=== PATIENT | female | born 1995 | race Caucasian/White ===

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

== ENCOUNTER 2017-04-11 15:54 | Emergency (ER) | payer OTHER ==
[~2017-04-11] VITALS: Ht 165.1 cm; Wt 131.6 kg
[2017-04-11 16:04] VITALS: BP 139/76
--- NOTE | 2017-04-11 16:40 | REP ---
Right wrist four views: Comparison is 12/09/2016. The known nondisplaced fracture of the scaphoid ossicle is unchanged. There is no acute fracture or dislocation. Demineralization is normal. No calcifications or foreign bodies. Impression: No acute fracture. Known scaphoid fracture. Signed by Brenden Boo MD 04/11/2017 04:31 P
== END 2017-04-11 17:38 | disposition home or self-care (01) ==
LOC: M ED 15:54
DX: S60.211A Contusion of right wrist, initial encounter (principal); W22.8XXA Striking against or struck by other objects, initial encounter; Y92.018 Other place in single-family (private) house as the place of occurrence of the external cause; Y93.89 Activity, other specified; Y99.8 Other external cause status; F99 Mental disorder, not otherwise specified; Z88.0 Allergy status to penicillin

== ENCOUNTER → 2017-09-26 | Outpatient (REF) | payer OTHER ==
[2017-09-26 15:17] LABS: BASO # 0.1 10^3/uL (0.0-0.2); BASO % 0.8 % (0.0-1.0); EOS # 0.7 10^3/uL (0.0-0.50); EOS % 6.8 % (0.0-3.0); IMMATURE GRANULOCYTE % 0.3 % (0-0); LYMPH # 2.2 10^3/uL (1.5-6.5); MEAN CORPUSCULAR HEMOGLOBIN 29.4 pg (27.0-33.0); MEAN CORPUSCULAR HGB CONC 33.8 g/dl (32.0-36.5); MEAN CORPUSCULAR VOLUME 87.1 fl (80.0-96.0); MONO # 0.6 10^3/uL (0.0-0.8); MONO % 5.8 % (0.0-5.0); NEUTROPHILS # 6.1 10^3/uL (1.8-7.7); NEUTROPHILS % 63.3 % (36.0-66.0); PLATELET COUNT, AUTOMATED 243 10^3/uL (150-450); RED CELL DISTRIBUTION WIDTH 13.3 % (11.5-14.5); WHITE BLOOD COUNT 9.6 10^3/uL (4.0-10.0)
[2017-09-26 15:39] LABS: ALBUMIN/GLOBULIN RATIO 1.21 (1.00-1.93); ALKALINE PHOSPHATASE 80 U/L (45-117); ALT/SGPT 40 U/L (12-78); ANION GAP 9 MEQ/L (8-16); AST/SGOT 23 U/L (7-37); BILIRUBIN,TOTAL 0.3 MG/DL (0.2-1.0); BLOOD UREA NITROGEN 14 MG/DL (7-18); CALCIUM LEVEL 8.7 MG/DL (8.5-10.1); CARBON DIOXIDE LEVEL 25 MEQ/L (21-32); CHLORIDE LEVEL 107 MEQ/L (98-107); CHOLESTEROL LEVEL 156 MG/DL (<200); CREATININE FOR GFR 0.64 MG/DL (0.55-1.02); FREE T4 0.96 NG/DL (0.78-1.33); GLUCOSE, FASTING 86 MG/DL (70-105); POTASSIUM SERUM 4.6 MEQ/L (3.5-5.1); SODIUM LEVEL 141 MEQ/L (136-145); TOTAL PROTEIN 7.3 GM/DL (6.4-8.2); TRIGLYCERIDES LEVEL 144 MG/DL (<150)
== END ==
LOC: M SFHCSACK 09:14
PROVIDERS: ATTEND Physician Assistant
DX: F41.9 Anxiety disorder, unspecified (principal); Z13.29 Encounter for screening for other suspected endocrine disorder; Z13.220 Encounter for screening for lipoid disorders; Z13.21 Encounter for screening for nutritional disorder

== ENCOUNTER 2017-10-25 23:57 | Emergency (ER) | payer OTHER | END 2017-10-26 01:44 | disposition left against medical advice (07) | LOC: M ED 23:57 | DX: Z53.29 Procedure and treatment not carried out because of patient's decision for other reasons (principal) ==

== ENCOUNTER 2017-12-30 12:46 | Emergency (ER) | payer OTHER ==
[2017-12-30] MEDS: ONDANSETRON 4 MG ORAL DISINTEGRATING TAB (S0181) PO (13:30)
[2017-12-30] MEDS: NS 1,000 ML IV (14:30)
[2017-12-30 14:46] LABS: BASO % 0.4 % (0.0-1.0); EOS # 0.6 10^3/uL (0.0-0.50); EOS % 7.1 % (0.0-3.0); HEMATOCRIT 41.7 % (36.0-47.0); HEMOGLOBIN 14.2 g/dl (12.0-16.0); IMMATURE GRANULOCYTE % 0.8 % (0-3.0); LYMPH # 1.9 10^3/uL (1.5-6.5); MEAN CORPUSCULAR HEMOGLOBIN 30.2 pg (27.0-33.0); MEAN CORPUSCULAR HGB CONC 34.1 g/dl (32.0-36.5); MEAN CORPUSCULAR VOLUME 88.7 fl (80.0-96.0); MONO # 0.6 10^3/uL (0.0-0.8); MONO % 7.7 % (0.0-5.0); NEUTROPHILS # 4.7 10^3/uL (1.8-7.7); PLATELET COUNT, AUTOMATED 234 10^3/uL (150-450); RED CELL DISTRIBUTION WIDTH 13.7 % (11.5-14.5); WHITE BLOOD COUNT 7.8 10^3/uL (4.0-10.0)
[2017-12-30 15:10] LABS: LIPASE 122 U/L (73-393)
[2017-12-30 15:16] LABS: ALBUMIN 3.6 GM/DL (3.2-5.2); ALBUMIN/GLOBULIN RATIO 1.09 (1.00-1.93); ALKALINE PHOSPHATASE 74 U/L (45-117); ALT/SGPT 23 U/L (12-78); ANION GAP 6 MEQ/L (8-16); AST/SGOT 18 U/L (7-37); BILIRUBIN,DIRECT 0.2 MG/DL (0.0-0.2); BILIRUBIN,TOTAL 0.4 MG/DL (0.2-1.0); BLOOD UREA NITROGEN 11 MG/DL (7-18); CALCIUM LEVEL 8.1 MG/DL (8.5-10.1); CARBON DIOXIDE LEVEL 27 MEQ/L (21-32); CHLORIDE LEVEL 107 MEQ/L (98-107); GLUCOSE, FASTING 88 MG/DL (70-100); POTASSIUM SERUM 4.2 MEQ/L (3.5-5.1); SODIUM LEVEL 140 MEQ/L (136-145); TOTAL PROTEIN 6.9 GM/DL (6.4-8.2)
== END 2017-12-30 16:21 | disposition home or self-care (01) ==
LOC: M ED 12:46
DX: A08.4 Viral intestinal infection, unspecified (principal); F41.9 Anxiety disorder, unspecified; F32.9 Major depressive disorder, single episode, unspecified; F17.200 Nicotine dependence, unspecified, uncomplicated; Z88.0 Allergy status to penicillin; Z79.899 Other long term (current) drug therapy
CPT/HCPCS: 76705

== ENCOUNTER 2018-02-01 10:04 | Emergency (ER) | payer OTHER | END 2018-02-01 11:24 | disposition home or self-care (01) | LOC: M ED 10:04 | DX: S29.011A Strain of muscle and tendon of front wall of thorax, initial encounter (principal); X50.9XXA Other and unspecified overexertion or strenuous movements or postures, initial encounter; Y92.89 Other specified places as the place of occurrence of the external cause; F33.9 Major depressive disorder, recurrent, unspecified; F41.9 Anxiety disorder, unspecified; F17.200 Nicotine dependence, unspecified, uncomplicated; Z79.899 Other long term (current) drug therapy; Z88.0 Allergy status to penicillin | CPT/HCPCS: 71101 ==

== ENCOUNTER 2018-02-01 15:31 | Emergency (ER) | payer OTHER ==
[2018-02-01] MEDS: PERCOCET 5MG/325MG TAB PO (17:37)
== END 2018-02-01 17:45 | disposition home or self-care (01) ==
LOC: M ED 15:31
DX: S22.31XA Fracture of one rib, right side, initial encounter for closed fracture (principal); X58.XXXA Exposure to other specified factors, initial encounter; Y92.89 Other specified places as the place of occurrence of the external cause; Y93.89 Activity, other specified; Y99.9 Unspecified external cause status; F17.200 Nicotine dependence, unspecified, uncomplicated; Z79.899 Other long term (current) drug therapy; Z88.0 Allergy status to penicillin
CPT/HCPCS: 71101

== ENCOUNTER 2018-02-16 04:38 | Emergency (ER) | payer OTHER ==
[2018-02-16] MEDS: NORCO 5/325MG TABLET (BULK FOR ED) PO (06:14)
== END 2018-02-16 06:19 | disposition home or self-care (01) ==
LOC: M ED 04:38
DX: S22.31XA Fracture of one rib, right side, initial encounter for closed fracture (principal); X50.9XXA Other and unspecified overexertion or strenuous movements or postures, initial encounter; Y92.89 Other specified places as the place of occurrence of the external cause; F17.210 Nicotine dependence, cigarettes, uncomplicated; Z88.0 Allergy status to penicillin; Z79.899 Other long term (current) drug therapy
CPT/HCPCS: 71250

== ENCOUNTER 2018-02-24 13:21 | Emergency (ER) | payer OTHER | END 2018-02-24 14:30 | disposition home or self-care (01) | LOC: M ED 13:21 | DX: S22.31XA Fracture of one rib, right side, initial encounter for closed fracture (principal); W19.XXXA Unspecified fall, initial encounter; Y92.89 Other specified places as the place of occurrence of the external cause; F33.9 Major depressive disorder, recurrent, unspecified; F41.9 Anxiety disorder, unspecified; F17.210 Nicotine dependence, cigarettes, uncomplicated; Z88.0 Allergy status to penicillin; Z79.899 Other long term (current) drug therapy | CPT/HCPCS: 99283 ==

== ENCOUNTER → 2018-05-29 | Outpatient (REF) | payer OTHER ==
[2018-05-29 15:21] LABS: BASO # 0.1 10^3/uL (0.0-0.2); BASO % 0.6 % (0.0-1.0); EOS # 0.9 10^3/uL (0.0-0.50); EOS % 7.1 % (0.0-3.0); HEMATOCRIT 41.2 % (36.0-47.0); HEMOGLOBIN 13.8 g/dl (12.0-15.5); IMMATURE GRANULOCYTE % 0.6 % (0-3.0); LYMPH # 3.3 10^3/uL (1.5-6.5); LYMPH % 26.3 % (24.0-44.0); MEAN CORPUSCULAR HEMOGLOBIN 28.3 pg (27.0-33.0); MEAN CORPUSCULAR HGB CONC 33.5 g/dl (32.0-36.5); MEAN CORPUSCULAR VOLUME 84.6 fl (80.0-96.0); MONO # 0.8 10^3/uL (0.0-0.8); MONO % 6.3 % (0.0-5.0); NEUTROPHILS # 7.3 10^3/uL (1.8-7.7); NEUTROPHILS % 59.1 % (36.0-66.0); PLATELET COUNT, AUTOMATED 316 10^3/uL (150-450); RED BLOOD COUNT 4.87 10^6/uL (4.00-5.40); RED CELL DISTRIBUTION WIDTH 13.7 % (11.5-14.5); WHITE BLOOD COUNT 12.4 10^3/uL (4.0-10.0)
[2018-05-29 15:47] LABS: ALBUMIN 3.6 GM/DL (3.2-5.2); ALBUMIN/GLOBULIN RATIO 1.06 (1.00-1.93); ALKALINE PHOSPHATASE 89 U/L (45-117); ALT/SGPT 22 U/L (12-78); ANION GAP 12 MEQ/L (8-16); AST/SGOT 12 U/L (7-37); BILIRUBIN,TOTAL 0.2 MG/DL (0.2-1.0); BLOOD UREA NITROGEN 12 MG/DL (7-18); CALCIUM LEVEL 8.5 MG/DL (8.5-10.1); CARBON DIOXIDE LEVEL 23 MEQ/L (21-32); CHLORIDE LEVEL 108 MEQ/L (98-107); CREATININE FOR GFR 0.58 MG/DL (0.55-1.30); GLUCOSE, FASTING 84 MG/DL (70-100); SODIUM LEVEL 143 MEQ/L (136-145)
[2018-05-29 15:49] LABS: POTASSIUM SERUM 5.4 MEQ/L (3.5-5.1)
[2018-05-29 16:07] LABS: TOTAL 25(OH) VITAMIN D 19.3 NG/ML (30.0-100.0)
== END ==
LOC: M SFHCSACK 08:12
DX: E55.9 Vitamin D deficiency, unspecified (principal)

== ENCOUNTER 2018-07-25 20:32 | Emergency (ER) | payer OTHER ==
[2018-07-25] MEDS: BENZONATATE 100 MG CAP PO (21:15)
== END 2018-07-25 21:19 | disposition home or self-care (01) ==
LOC: M ED 20:32
DX: J02.9 Acute pharyngitis, unspecified (principal)
CPT/HCPCS: 99282

== ENCOUNTER 2018-08-06 11:01 | Emergency (ER) | payer OTHER ==
[2018-08-06] MEDS: METHOCARBAMOL 500 MG TAB PO (11:28)
[2018-08-06] MEDS: NORCO, ANEXSIA 5/325MG TABLET (HYDROcodone/ACETAMINOPHEN) PO (11:28)
== END 2018-08-06 12:11 | disposition home or self-care (01) ==
LOC: M ED 11:01
DX: J20.9 Acute bronchitis, unspecified (principal); Z88.0 Allergy status to penicillin
CPT/HCPCS: 71101

== ENCOUNTER → 2018-11-03 | Outpatient (CLI) | payer OTHER ==
[~2018-11-03] MED LIST: ACET30TAB PO; CEFD1CAP8 PO; CETI10TA; CIPR500T3; CITA20TA4 PO; CYCL10TA PO; ESCI20TA PO; FLON1SPR NARES; HYDR-3363 PO; IBUP80TA PO; LEVO750T13; LORA-243 PO; MUCI600T37 PO; NAPR250T4 PO; NORCOTAB PO; PERC5TAB12 PO; TESS100C PO; VENTAER; VITA50005; VITA50005 PO; ZOFR4TAB14 PO; [UNRECOGNIZED DRUG - CODE] XX
[2018-11-03 14:00] LABS: BASO # 0.1 10^3/uL (0.0-0.2); BASO % 0.7 % (0.0-1.0); EOS # 0.5 10^3/uL (0.0-0.50); EOS % 4.7 % (0.0-3.0); HEMATOCRIT 42.7 % (36.0-47.0); HEMOGLOBIN 14.2 g/dl (12.0-15.5); LYMPH # 2.4 10^3/uL (1.5-6.5); LYMPH % 23.2 % (24.0-44.0); MEAN CORPUSCULAR HEMOGLOBIN 28.3 pg (27.0-33.0); MEAN CORPUSCULAR HGB CONC 33.3 g/dl (32.0-36.5); MEAN CORPUSCULAR VOLUME 85.1 fl (80.0-96.0); MONO # 0.7 10^3/uL (0.0-0.8); NEUTROPHILS # 6.5 10^3/uL (1.8-7.7); NEUTROPHILS % 63.8 % (36.0-66.0); PLATELET COUNT, AUTOMATED 280 10^3/uL (150-450); RED BLOOD COUNT 5.02 10^6/uL (4.00-5.40); WHITE BLOOD COUNT 10.1 10^3/uL (4.0-10.0)
[2018-11-03 14:34] LABS: ALBUMIN 3.6 GM/DL (3.2-5.2); ALT/SGPT 24 U/L (12-78); BILIRUBIN,TOTAL 0.4 MG/DL (0.2-1.0); BLOOD UREA NITROGEN 10 MG/DL (7-18); CALCIUM LEVEL 8.4 MG/DL (8.5-10.1); CARBON DIOXIDE LEVEL 24 MEQ/L (21-32); CHLORIDE LEVEL 104 MEQ/L (98-107); CHOLESTEROL LEVEL 187 MG/DL (<200); CHOLESTEROL RISK RATIO 5.666 (<5); CREATININE FOR GFR 0.64 MG/DL (0.55-1.30); FREE T4 0.85 NG/DL (0.76-1.46); GLOMERULAR FILTRATION RATE > 60.0 (>60); GLUCOSE, FASTING 87 MG/DL (70-100); HDL CHOLESTEROL 33 MG/DL (>40); LDL CHOLESTEROL 115 MG/DL (<100); NON-HDL-C 154 MG/DL; POTASSIUM SERUM 4.8 MEQ/L (3.5-5.1); SODIUM LEVEL 137 MEQ/L (136-145); TRIGLYCERIDES LEVEL 195 MG/DL (<150)
[2018-11-03 14:57] LABS: TOTAL 25(OH) VITAMIN D 19.1 NG/ML (30.0-100.0)
== END ==
LOC: M LAB 13:20
PROVIDERS: ATTEND Physician Assistant
DX: Z13.220 Encounter for screening for lipoid disorders (principal); F41.9 Anxiety disorder, unspecified; E55.9 Vitamin D deficiency, unspecified; Z13.29 Encounter for screening for other suspected endocrine disorder

== ENCOUNTER → 2019-01-18 | Outpatient (REF) | payer OTHER ==
[~2019-01-18] MED LIST changes: +ACET-716 PO; -ACET30TAB PO; -CITA20TA4 PO; +CITA20TA6 PO; +HYDR-3715 PO; +NEXP1IMP SC; +NITR100C2 PO; -NORCOTAB PO; +PHEN-501 PO
== END ==
LOC: M SFHCSACK 14:20
PROVIDERS: ATTEND Physician Assistant
DX: R30.0 Dysuria (principal)

== ENCOUNTER 2019-01-19 15:45 | Emergency (ER) | payer OTHER ==
[~2019-01-19] VITALS: Ht 165.1 cm; Wt 154.0 kg
[~2019-01-19 15:45] MED LIST changes: -NEXP1IMP SC; -NITR100C2 PO; -PHEN-501 PO
[2019-01-19] MEDS ORDERED: PHEN-501 PO (16:15)
[2019-01-19] MEDS ORDERED: NITR100C2 PO (16:15)
[2019-01-19] MEDS ORDERED: NEXP1IMP SC (16:17)
[2019-01-19 20:01] LABS: URINE PREG TEST NEGATIVE (NEGATIVE)
[2019-01-19] MEDS ORDERED: AZITHROMYCIN 250 MG TAB As Ordered ONE (20:40)
[2019-01-19 20:41] VITALS: BP 168/85
[2019-01-19] MEDS ORDERED: LIDOCAINE 1% SDV 5 ML VIAL DILUENT ONE (20:45)
[2019-01-19] MEDS ORDERED: AZITHROMYCIN 250 MG TAB PO ONE (20:45)
[2019-01-19] MEDS ORDERED: cefTRIAXone SOD 250 MG VIAL (J0696) IM ONE (20:45)
[2019-01-19 22:03] LABS: CHLAMYDIA DNA AMPLIFICATION NEGATIVE (NEGATIVE); GC DNA AMPLIFICATION NEGATIVE (NEGATIVE)
== END 2019-01-19 21:08 | disposition home or self-care (01) ==
LOC: M ED 15:45
DX: N39.0 Urinary tract infection, site not specified (principal); R30.0 Dysuria; N89.8 Other specified noninflammatory disorders of vagina; R51 Headache; E66.01 Morbid (severe) obesity due to excess calories; Z79.3 Long term (current) use of hormonal contraceptives; Z79.899 Other long term (current) drug therapy; Z88.0 Allergy status to penicillin
CPT/HCPCS: 81001; 84703; 87086; 87210; 87491; 87591; 96372; 99283; J0696

== ENCOUNTER → 2019-04-26 | Outpatient (REF) | payer OTHER ==
[~2019-04-26] MED LIST changes: +NEXP1IMP SC; +NITR100C2 PO; +PHEN-501 PO
[2019-04-26 14:00] LABS: BASO # 0.1 10^3/uL (0.0-0.2); BASO % 0.7 % (0.0-1.0); EOS # 0.4 10^3/uL (0.0-0.50); EOS % 3.5 % (0.0-3.0); HEMOGLOBIN 13.6 g/dl (12.0-15.5); LYMPH # 2.4 10^3/uL (1.5-6.5); LYMPH % 20.4 % (24.0-44.0); MEAN CORPUSCULAR VOLUME 88.1 fl (80.0-96.0); MONO # 0.9 10^3/uL (0.0-0.8); MONO % 7.7 % (0.0-5.0); NEUTROPHILS # 7.9 10^3/uL (1.8-7.7); NEUTROPHILS % 67.2 % (36.0-66.0); PLATELET COUNT, AUTOMATED 257 10^3/uL (150-450); RED BLOOD COUNT 4.54 10^6/uL (4.00-5.40); WHITE BLOOD COUNT 11.8 10^3/uL (4.0-10.0)
[2019-04-26 14:07] LABS: ALBUMIN 3.7 GM/DL (3.2-5.2); ALT/SGPT 24 U/L (12-78); BILIRUBIN,TOTAL 0.4 MG/DL (0.2-1.0); BLOOD UREA NITROGEN 7 MG/DL (7-18); CALCIUM LEVEL 8.3 MG/DL (8.5-10.1); CARBON DIOXIDE LEVEL 21 MEQ/L (21-32); CHLORIDE LEVEL 104 MEQ/L (98-107); CHOLESTEROL LEVEL 163 MG/DL (<200); CHOLESTEROL RISK RATIO 5.433 (<5); CREATININE FOR GFR 0.67 MG/DL (0.55-1.30); GLOMERULAR FILTRATION RATE > 60.0 (>60); GLUCOSE, FASTING 99 MG/DL (70-100); HDL CHOLESTEROL 30 MG/DL (>40); LDL CHOLESTEROL 110 MG/DL (<100); NON-HDL-C 133 MG/DL; POTASSIUM SERUM 3.9 MEQ/L (3.5-5.1); SODIUM LEVEL 137 MEQ/L (136-145); TOTAL PROTEIN 7.1 GM/DL (6.4-8.2); TRIGLYCERIDES LEVEL 113 MG/DL (<150)
[2019-04-26 14:15] LABS: TOTAL 25(OH) VITAMIN D 14.3 NG/ML (30.0-100.0)
== END ==
LOC: M SFHCSACK 09:18
PROVIDERS: ATTEND Physician Assistant
DX: E78.2 Mixed hyperlipidemia (principal); E55.9 Vitamin D deficiency, unspecified

== ENCOUNTER → 2020-07-20 | Outpatient (REF) | payer OTHER ==
[~2020-07-20] MED LIST changes: +CYCL-707 PO; -CYCL10TA PO
[2020-07-20 22:42] LABS: APPEARANCE, URINE CLOUDY (CLEAR); BACTERIA, URINE AUTO 1+ (NEGATIVE); BILIRUBIN, URINE AUTO NEGATIVE (NEGATIVE); BLOOD, URINE BLOOD 2+ (NEGATIVE); COLOR, URINE YELLOW (YELLOW); GLUCOSE, URINE (UA) AUTO NEGATIVE (NEGATIVE); KETONE, URINE AUTO NEGATIVE (NEGATIVE); LEUKOCYTE ESTERASE, URINE AUTO 2+ (NEGATIVE); NITRITE, URINE AUTO NEGATIVE (NEGATIVE); PROTEIN, URINE AUTO NEGATIVE (NEGATIVE); RBC, URINE AUTO 17 /HPF (0-3); SPECIFIC GRAVITY URINE AUTO 1.012 (1.002-1.035); SQUAMOUS EPITHELIAL CELL UR AU 6 /HPF (0-6); UROBILINOGEN, URINE AUTO 0.2 mg/dL (0.0-2.0); WBC, URINE AUTO 136 /HPF (0-3)
== END ==
LOC: M LAB REF 19:00
PROVIDERS: ATTEND Physician Assistant
DX: N39.0 Urinary tract infection, site not specified (principal); Z11.3 Encounter for screening for infections with a predominantly sexual mode of transmission

== ENCOUNTER → 2020-10-18 | Outpatient (REF) | payer OTHER | LOC: M LAB REF 12:54 | PROVIDERS: ATTEND Physician Assistant Medical | DX: N39.0 Urinary tract infection, site not specified (principal); N76.0 Acute vaginitis ==

== ENCOUNTER → 2021-03-08 | Outpatient (REF) | payer OTHER ==
[~2021-03-08] MED LIST changes: -ESCI20TA PO; +ESCI20TA16 PO; +NAPR-849 PO; -NAPR250T4 PO
[2021-03-08 18:08] LABS: APPEARANCE, URINE HAZY (CLEAR); BACTERIA, URINE AUTO NEGATIVE (NEGATIVE); BILIRUBIN, URINE AUTO NEGATIVE (NEGATIVE); BLOOD, URINE BLOOD NEGATIVE (NEGATIVE); COLOR, URINE YELLOW (YELLOW); GLUCOSE, URINE (UA) AUTO NEGATIVE (NEGATIVE); KETONE, URINE AUTO NEGATIVE (NEGATIVE); LEUKOCYTE ESTERASE, URINE AUTO TRACE (NEGATIVE); NITRITE, URINE AUTO NEGATIVE (NEGATIVE); PROTEIN, URINE AUTO NEGATIVE (NEGATIVE); RBC, URINE AUTO 1 /HPF (0-3); SPECIFIC GRAVITY URINE AUTO 1.016 (1.002-1.035); SQUAMOUS EPITHELIAL CELL UR AU 5 /HPF (0-6); UROBILINOGEN, URINE AUTO 0.2 mg/dL (0.0-2.0); WBC, URINE AUTO 3 /HPF (0-3)
== END ==
LOC: M LAB REF 17:00
PROVIDERS: ATTEND Physician Assistant
DX: R30.0 Dysuria (principal)

== ENCOUNTER 2021-03-14 15:49 | Emergency (ER) | payer OTHER ==
[~2021-03-14] VITALS: Ht 167.6 cm; Wt 157.1 kg
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
[2021-03-14] MEDS ORDERED: ONDANSETRON 4 MG ORAL DISINTEGRATING TAB PO ONE (18:35)
[2021-03-14] MEDS ORDERED: ACETAMINOPHEN 500 MG TAB PO ONE (18:35)
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
[2021-03-14] MEDS ORDERED: NAPR-837 PO (20:06)
[2021-03-14] MEDS ORDERED: CYCL-707 PO (20:06)
[2021-03-14] MEDS ORDERED: ONDA4TAB6 PO (20:14)
[2021-03-14 20:25] VITALS: BP 134/71
== END 2021-03-14 20:27 | disposition home or self-care (01) ==
LOC: M ED 15:49
DX: S13.4XXA Sprain of ligaments of cervical spine, initial encounter (principal); S09.90XA Unspecified injury of head, initial encounter; S20.319A Abrasion of unspecified front wall of thorax, initial encounter; M62.838 Other muscle spasm; V43.52XA Car driver injured in collision with other type car in traffic accident, initial encounter; Y92.9 Unspecified place or not applicable; Y93.9 Activity, unspecified; Y99.9 Unspecified external cause status; F41.9 Anxiety disorder, unspecified; F32.9 Major depressive disorder, single episode, unspecified; J34.89 Other specified disorders of nose and nasal sinuses; F17.200 Nicotine dependence, unspecified, uncomplicated; Z79.3 Long term (current) use of hormonal contraceptives; Z88.0 Allergy status to penicillin
CPT/HCPCS: 70450; 71046; 72125; 99283; Q0162

== ENCOUNTER 2022-08-30 18:20 | Emergency (ER) | payer OTHER ==
[2022-08-30 18:20] VITALS: BP 136/71
[~2022-08-30 18:20] MED LIST changes: -CEFD1CAP8 PO; +CEFD300C41 PO; +ETON68IM SC; +LEVO1TAB40; -LEVO750T13; +NAPR-837 PO; -NEXP1IMP SC; +ONDA4TAB6 PO
[2022-08-30] MEDS ORDERED: ACETAMINOPHEN 500 MG TAB PO ONE (18:30)
[2022-08-30 19:20] LABS: RSV AMPLIFICATION NEGATIVE (NEGATIVE)
[2022-08-30] MEDS ORDERED: BENZONATATE 100MG CAPSULE PO ONE (20:30)
[2022-08-30] MEDS ORDERED: BENZ200C70 PO (20:31)
== END 2022-08-30 20:49 | disposition home or self-care (01) ==
LOC: M ED 18:20
DX: J09.X2 Influenza due to identified novel influenza A virus with other respiratory manifestations (principal); R05.9 Cough, unspecified; Z88.1 Allergy status to other antibiotic agents

== ENCOUNTER → 2023-02-07 | Outpatient (REF) | payer OTHER ==
[~2023-02-07] MED LIST changes: +BENZ200C70 PO
== END ==
LOC: M LAB REF 20:43
PROVIDERS: ATTEND Physician Assistant
DX: J02.9 Acute pharyngitis, unspecified (principal)

== ENCOUNTER → 2023-08-10 | Outpatient (REF) | payer OTHER ==
[~2023-08-10] MED LIST changes: -CEFD300C41 PO; +CEFD300C42 PO
[2023-08-10 18:23] LABS: APPEARANCE, URINE CLOUDY (CLEAR); BACTERIA, URINE AUTO 1+ (NEGATIVE); BILIRUBIN, URINE AUTO NEGATIVE (NEGATIVE); BLOOD, URINE BLOOD 3+ (NEGATIVE); COLOR, URINE AMBER (YELLOW); GLUCOSE, URINE (UA) AUTO NEGATIVE (NEGATIVE); KETONE, URINE AUTO NEGATIVE (NEGATIVE); LEUKOCYTE ESTERASE, URINE AUTO 3+ (NEGATIVE); MUCUS, URINE SMALL (NEGATIVE); NITRITE, URINE AUTO POSITIVE (NEGATIVE); PROTEIN, URINE AUTO 2+ mg/dL (NEGATIVE); RBC, URINE AUTO 84 /HPF (0-3); SPECIFIC GRAVITY URINE AUTO 1.026 (1.002-1.035); SQUAMOUS EPITHELIAL CELL UR AU 5 /HPF (0-6); UROBILINOGEN, URINE AUTO 0.2 mg/dL (0.0-2.0); WBC, URINE AUTO 172 /HPF (0-3)
== END ==
LOC: M LAB REF 17:32
PROVIDERS: ATTEND Physician Assistant Medical
DX: N39.0 Urinary tract infection, site not specified (principal)

== ENCOUNTER → 2023-09-16 | Outpatient (CLI) | payer OTHER ==
[~2023-09-16] MED LIST changes: +CEFD1CAP9 PO; -CEFD300C42 PO
[2023-09-16 16:10] LABS: BASO % 0.3 % (0.0-1.0); EOS # 0.6 10^3/uL (0.0-0.5); EOS % 4.6 % (0.0-3.0); HEMATOCRIT 36.8 % (36.0-47.0); HEMOGLOBIN 12.3 g/dl (12.0-15.5); LYMPH # 2.7 10^3/uL (1.5-5.0); LYMPH % 20.9 % (24.0-44.0); MEAN CORPUSCULAR HGB CONC 33.4 g/dl (32.0-36.5); MEAN CORPUSCULAR VOLUME 89.8 fl (80.0-96.0); MONO # 0.7 10^3/uL (0.0-0.8); MONO % 5.5 % (2.0-8.0); NEUTROPHILS # 8.9 10^3/uL (1.5-8.5); NEUTROPHILS % 67.6 % (36.0-66.0); PLATELET COUNT, AUTOMATED 235 10^3/uL (150-450); WHITE BLOOD COUNT 13.1 10^3/uL (4.0-10.0)
[2023-09-16 16:36] LABS: ALKALINE PHOSPHATASE 56 U/L (46-116); ALT/SGPT 16 U/L (7.0-40); AST/SGOT < 8 U/L (<34); BILIRUBIN,TOTAL 0.3 MG/DL (0.3-1.2); BLOOD UREA NITROGEN 8 MG/DL (9-23); CALCIUM LEVEL 8.6 MG/DL (8.5-10.1); CARBON DIOXIDE LEVEL 24 MMOL/L (20-31); CHLORIDE LEVEL 105 MMOL/L (98-107); CREATININE FOR GFR 0.49 MG/DL (0.55-1.30); GLOMERULAR FILTRATION RATE > 60.0 (>60); GLUCOSE, FASTING 72 MG/DL (60-100); IRON (FE) 46 UG/DL (50-170); PERCENT SATURATION 14.9 % (13.2-45.0); SODIUM LEVEL 137 MMOL/L (136-145); TOTAL IRON BINDING CAPACITY 309 UG/DL (250-425); TOTAL PROTEIN 5.9 G/DL (5.7-8.2)
[2023-09-16 16:38] LABS: FERRITIN 129.8 NG/ML (7.3-270.7); THYROID STIMULATING HORMONE 2.466 uIU/ML (0.55-4.78); VITAMIN B12 LEVEL 255 PG/ML (211-911)
[2023-09-16 17:01] LABS: HEMOGLOBIN A1c 4.8 % (4.0-6.0)
[2023-09-16 17:09] LABS: HIV 1&2 SCREEN NEGATIVE (NEGATIVE)
== END ==
LOC: M PLALAB 14:22
PROVIDERS: ATTEND Physician Assistant
DX: O99.210 Obesity complicating pregnancy, unspecified trimester (principal); E66.01 Morbid (severe) obesity due to excess calories; R53.83 Other fatigue; Z3A.00 Weeks of gestation of pregnancy not specified; O26.899 Other specified pregnancy related conditions, unspecified trimester

== ENCOUNTER → 2023-09-18 | Outpatient (CLI) | payer OTHER | LOC: M RAD 14:56 | PROVIDERS: ATTEND Physician Assistant | DX: O28.0 Abnormal hematological finding on antenatal screening of mother (principal); Z3A.17 17 weeks gestation of pregnancy; O44.42 Low lying placenta NOS or without hemorrhage, second trimester ==

== ENCOUNTER → 2023-09-18 | Outpatient (CLI) | payer OTHER | LOC: M PLALAB 09:33 | PROVIDERS: ATTEND Physician Assistant | DX: O28.0 Abnormal hematological finding on antenatal screening of mother (principal) ==

== ENCOUNTER 2023-10-11 13:27 | Emergency (ER) | payer OTHER ==
[~2023-10-11] VITALS: Ht 167.6 cm; Wt 148.9 kg
[2023-10-11 13:29] VITALS: BP 141/61; TEMP 97.6; O2SAT 97
[2023-10-11] MEDS ORDERED: OMEP-173 (13:50)
[2023-10-11] MEDS ORDERED: PRENTAB9 (13:50)
[2023-10-11 15:29] LABS: RSV AMPLIFICATION NEGATIVE (NEGATIVE)
[2023-10-11] MEDS ORDERED: CEFD1CAP9 PO (18:11)
[2023-10-11] MEDS ORDERED: VENTAER INH (18:12)
== END 2023-10-11 18:18 | disposition home or self-care (01) ==
LOC: M ED 13:27
DX: O99.512 Diseases of the respiratory system complicating pregnancy, second trimester (principal); J06.9 Acute upper respiratory infection, unspecified; O26.892 Other specified pregnancy related conditions, second trimester; H66.002 Acute suppurative otitis media without spontaneous rupture of ear drum, left ear; F17.200 Nicotine dependence, unspecified, uncomplicated; K21.9 Gastro-esophageal reflux disease without esophagitis; Z88.1 Allergy status to other antibiotic agents; Z3A.20 20 weeks gestation of pregnancy; Z79.52 Long term (current) use of systemic steroids; Z79.2 Long term (current) use of antibiotics; Z79.810 Long term (current) use of selective estrogen receptor modulators (SERMs)

== ENCOUNTER → 2023-10-24 | Outpatient (CLI) | payer OTHER ==
[~2023-10-24] MED LIST changes: +OMEP-173; +PRENTAB9; +VENTAER INH
== END ==
LOC: M PLALAB 09:39
PROVIDERS: ATTEND Specialist
DX: Z34.82 Encounter for supervision of other normal pregnancy, second trimester (principal)

== ENCOUNTER → 2023-11-03 | Outpatient (CLI) | payer OTHER | LOC: M WHC 10:26 | PROVIDERS: ATTEND Specialist | DX: Z34.82 Encounter for supervision of other normal pregnancy, second trimester (principal); Z3A.24 24 weeks gestation of pregnancy; Z36.2 Encounter for other antenatal screening follow-up ==

== ENCOUNTER → 2023-12-10 | Outpatient (CLI) | payer OTHER ==
[2023-12-10 15:49] LABS: HEMATOCRIT 35.9 % (36.0-47.0); MEAN CORPUSCULAR HGB CONC 33.4 g/dl (32.0-36.5); MEAN CORPUSCULAR VOLUME 89.8 fl (80.0-96.0); PLATELET COUNT, AUTOMATED 232 10^3/uL (150-450); WHITE BLOOD COUNT 15.5 10^3/uL (4.0-10.0)
[2023-12-10 17:10] LABS: GC DNA AMPLIFICATION NEGATIVE (NEGATIVE)
== END ==
LOC: M PLALAB 11:08
PROVIDERS: ATTEND Specialist
DX: Z34.82 Encounter for supervision of other normal pregnancy, second trimester (principal)

== ENCOUNTER → 2023-12-12 | Outpatient (CLI) | payer OTHER | LOC: M LAB 07:56 | PROVIDERS: ATTEND Advanced Practice Midwife | DX: O99.810 Abnormal glucose complicating pregnancy (principal); Z3A.00 Weeks of gestation of pregnancy not specified ==

== ENCOUNTER → 2024-01-21 | Outpatient (REF) | payer OTHER | LOC: M PLALAB 15:04 | PROVIDERS: ATTEND Advanced Practice Midwife | DX: Z34.83 Encounter for supervision of other normal pregnancy, third trimester (principal) ==

== ENCOUNTER → 2024-01-23 | Outpatient (CLI) | payer OTHER | LOC: M PLALAB 10:22 | PROVIDERS: ATTEND Obstetrics & Gynecology | DX: O24.419 Gestational diabetes mellitus in pregnancy, unspecified control (principal); Z3A.00 Weeks of gestation of pregnancy not specified ==

== ENCOUNTER → 2024-02-16 | Outpatient (CLI) | payer OTHER | LOC: M WHC 11:48 | PROVIDERS: ATTEND Advanced Practice Midwife | DX: O24.410 Gestational diabetes mellitus in pregnancy, diet controlled (principal); Z3A.38 38 weeks gestation of pregnancy ==

== ENCOUNTER 2024-02-21 02:28 | Outpatient (CLI) | payer OTHER ==
[~2024-02-21] VITALS: Ht 167.6 cm; Wt 170.4 kg
[2024-02-22] MEDS ORDERED: COLA100C5 PO (15:34)
[2024-02-22] MEDS ORDERED: IBUP80TA PO (15:34)
[2024-02-22] MEDS ORDERED: PERCOCET PO (15:34)
== END 2024-02-21 04:22 | disposition home or self-care (01) ==
LOC: M LDO 02:28
PROVIDERS: ATTEND Advanced Practice Midwife
DX: O24.410 Gestational diabetes mellitus in pregnancy, diet controlled (principal); O99.513 Diseases of the respiratory system complicating pregnancy, third trimester; O99.333 Smoking (tobacco) complicating pregnancy, third trimester; O99.213 Obesity complicating pregnancy, third trimester; O09.293 Supervision of pregnancy with other poor reproductive or obstetric history, third trimester; E66.01 Morbid (severe) obesity due to excess calories; J45.909 Unspecified asthma, uncomplicated; F17.210 Nicotine dependence, cigarettes, uncomplicated; Z71.1 Person with feared health complaint in whom no diagnosis is made; Z3A.39 39 weeks gestation of pregnancy
CPT/HCPCS: 59025; G0463

== ENCOUNTER 2024-06-30 23:42 | Emergency (ER) | payer MEDICAID, OTHER ==
[~2024-06-30] VITALS: Ht 167.6 cm; Wt 156.8 kg
[~2024-06-30 23:42] MED LIST changes: +COLA100C5 PO; +ONDA-282 PO; -ONDA4TAB6 PO; +PERCOCET PO
[2024-06-30 23:43] VITALS: BP 132/70; TEMP 99.5; O2SAT 98
== END 2024-07-01 02:54 | disposition left against medical advice (07) ==
LOC: M ED 23:42
DX: Z53.21 Procedure and treatment not carried out due to patient leaving prior to being seen by health care provider (principal)

== ENCOUNTER → 2024-08-26 | Outpatient (CLI) | payer OTHER | LOC: M PLAIMG 14:07 | PROVIDERS: ATTEND Physician Assistant | DX: M54.42 Lumbago with sciatica, left side (principal); M53.3 Sacrococcygeal disorders, not elsewhere classified ==